=== PATIENT | female | born 1960 | race African-American/Black ===

== ENCOUNTER 2016-09-10 10:48 | Emergency (ER) | payer OTHER ==
[~2016-09-10] VITALS: Ht 167.6 cm; Wt 79.0 kg
[2016-09-10] MEDS ORDERED: [UNRECOGNIZED DRUG - REMARK] (11:01)
[2016-09-10] MEDS ORDERED: IPRATROPIUM BROMIDE 0.5 MG/2.5 ML NEB SOLUTION NEB ONE (12:00)
[2016-09-10] MEDS ORDERED: KETOROLAC TROMETHAMINE 60 MG/2 ML VIAL IM ONE (12:00)
[2016-09-10 12:50] VITALS: BP 141/75
== END 2016-09-10 13:00 | disposition home or self-care (01) ==
LOC: EMS 10:49
DX: Z48.02 Encounter for removal of sutures (principal); J45.909 Unspecified asthma, uncomplicated; I10 Essential (primary) hypertension; F17.210 Nicotine dependence, cigarettes, uncomplicated
CPT/HCPCS: 94640; 96372; 99283; J1885